=== PATIENT | male | born 1985 | race Caucasian/White ===

== ENCOUNTER 2017-04-06 18:11 | Inpatient (IN) | payer MEDICAID ==
[~2017-04-06] VITALS: Ht 175.3 cm; Wt 112.0 kg
[2017-04-06] MEDS ORDERED: BUPR150T3 PO (18:14)
[2017-04-06] MEDS ORDERED: QUET50TA PO (18:14)
[2017-04-06] MEDS ORDERED: CLON0.5T PO (18:14)
[2017-04-06 18:52] LABS: BASOPHILS % (AUTO) 0.2 % (0.0-2.0); EOSINOPHILS % (AUTO) 1.9 % (1.0-6.0); HEMATOCRIT 45.2 % (41-53); HEMOGLOBIN 14.7 g/dL (13.5-17.5); LYMPHOCYTES # (AUTO) 0.7 K/uL (1.0-4.8); LYMPHOCYTES % (AUTO) 17.5 % (22.0-44.0); MEAN CORPUSCULAR HEMOGLOBIN 28.8 pg (26.0-34.0); MEAN CORPUSCULAR HGB CONC 32.5 G/dL (31.0-37.0); MEAN CORPUSCULAR VOLUME 89 fL (80-100); MONOCYTES # (AUTO) 0.4 K/uL (0.1-1.0); MONOCYTES % (AUTO) 9.9 % (2.0-9.0); NEUTROPHILS # (AUTO) 2.7 K/uL (1.8-7.7); NEUTROPHILS % (AUTO) 70.5 % (40.0-70.0); PLATELET COUNT (AUTO) 216 K/uL (150-450); WHITE BLOOD COUNT (AUTO) 3.9 K/uL (4.5-11.0)
[2017-04-06 18:57] LABS: ANION GAP 8 mmol/L (8-16); CALCIUM, TOTAL 8.6 mg/dL (8.8-10.5); CARBON DIOXIDE 30 mmol/L (22-29); CHLORIDE 98 mmol/L (98-107); CREATININE 0.94 mg/dL (0.60-1.30); GLOMERULAR FILTR. RATE CALC > 60 mL/min (>60); SODIUM SERUM 136 mmol/L (136-145); UREA NITROGEN, BLOOD 9 mg/dL (7-18)
[2017-04-06 19:05] LABS: ALANINE AMINOTRANSFERASE 39 U/L (12-78); ALBUMIN 3.7 g/dL (3.4-5.0); ASPARTATE AMINOTRANSFERASE 42 U/L (15-37); BILIRUBIN,TOTAL 0.7 mg/dL (0.1-1.0); TOTAL PROTEIN, SERUM 7.9 g/dL (6.4-8.2)
[2017-04-06] MEDS ORDERED: POTASSIUM CHLORIDE 20 MEQ ER TABLET PO ONE (19:30)
[2017-04-06] MEDS ORDERED: HALOPERIDOL 5 MG TABLET PO PRN (20:00)
[2017-04-06 20:15] LABS: CHOL/HDL RATIO 3.4 (4.2-7.3)
[2017-04-06 20:50] LABS: APPEARANCE,URINE CLEAR (CLEAR); GLUCOSE, URINE (UA) NEGATIVE (NEGATIVE); KETONES,URINE TRACE mg/dL (NEGATIVE); LEUKOCYTE ESTERASE ,URINE NEGATIVE (NEGATIVE); OCCULT BLOOD,URINE NEGATIVE (NEGATIVE); PROTEIN,URINE TRACE (NEGATIVE)
[2017-04-06 20:52] LABS: ADD UA MICROSCOPIC NO
[2017-04-06 22:39] VITALS: BP 125/75
[2017-04-07 00:05] VITALS: BP 129/65
[2017-04-07] MEDS ORDERED: PNEUMOCOCCAL VACCINE POLYVALENT 0.5 ML VIAL [PPSV23] IM ONE (02:00)
[2017-04-07 08:21] LABS: ALANINE AMINOTRANSFERASE 38 U/L (12-78); ALBUMIN 3.2 g/dL (3.4-5.0); ANION GAP 8 mmol/L (8-16); ASPARTATE AMINOTRANSFERASE 33 U/L (15-37); BILIRUBIN,TOTAL 0.4 mg/dL (0.1-1.0); CALCIUM, TOTAL 8.1 mg/dL (8.8-10.5); CARBON DIOXIDE 28 mmol/L (22-29); CHLORIDE 101 mmol/L (98-107); CREATININE 0.79 mg/dL (0.60-1.30); GLOMERULAR FILTR. RATE CALC > 60 mL/min (>60); POTASSIUM 3.7 mmol/L (3.5-5.1); SODIUM SERUM 137 mmol/L (136-145); TOTAL PROTEIN, SERUM 6.5 g/dL (6.4-8.2); UREA NITROGEN, BLOOD 9 mg/dL (7-18)
[2017-04-07 08:41] VITALS: BP 124/60
[2017-04-07] MEDS: LORazepam 2 MG TABLET PO PRN (12:48)
[2017-04-07] MEDS: NICOTINE 21 MG/24 HOUR PATCH TD SCH (12:48)
[2017-04-07 16:16] VITALS: BP 137/76
[2017-04-07] MEDS: QUEtiapine FUMARATE 100 MG TABLET PO SCH (16:16)
[2017-04-07] MEDS: BuPROPion HCL 150 MG SR TABLET PO SCH (16:16)
[2017-04-08 00:14] VITALS: BP 127/71
[2017-04-08] MEDS: LORazepam 2 MG TABLET PO PRN ×2 (01:02→11:08)
[2017-04-08] MEDS: QUEtiapine FUMARATE 100 MG TABLET PO SCH ×2 (08:26→16:54)
[2017-04-08] MEDS: NICOTINE 21 MG/24 HOUR PATCH TD SCH (08:26)
[2017-04-08] MEDS: BuPROPion HCL 150 MG SR TABLET PO SCH ×2 (08:26→16:54)
[2017-04-08 08:34] VITALS: BP 136/76
[2017-04-08] MEDS ORDERED: DiphenhydrAMINE HCL 50 MG/ML VIAL ONE (15:55)
[2017-04-08] MEDS ORDERED: LORazepam 2 MG/ML VIAL ONE (15:55)
[2017-04-08] MEDS ORDERED: HALOPERIDOL LACTATE 5 MG/ML VIAL ONE (15:55)
[2017-04-08 16:00] VITALS: BP 126/76
[2017-04-08] MEDS ORDERED: DiphenhydrAMINE HCL 50 MG/ML VIAL IM ONE (16:00)
[2017-04-08] MEDS ORDERED: HALOPERIDOL LACTATE 5 MG/ML VIAL IM ONE (16:00)
[2017-04-08] MEDS ORDERED: LORazepam 2 MG/ML VIAL IM ONE (16:00)
[2017-04-08] MEDS: ZOLPIDEM TARTRATE 10 MG TABLET PO PRN ×2 (20:57)
[2017-04-09 06:52] VITALS: BP 144/74
[2017-04-09] MEDS: NICOTINE 21 MG/24 HOUR PATCH TD SCH (08:22)
[2017-04-09] MEDS: BuPROPion HCL 150 MG SR TABLET PO SCH ×2 (08:22→17:00)
[2017-04-09] MEDS: QUEtiapine FUMARATE 100 MG TABLET PO SCH ×2 (08:22→17:00)
[2017-04-09 08:41] VITALS: BP 130/66
[2017-04-09] MEDS: LORazepam 2 MG TABLET PO PRN ×2 (10:22→17:00)
[2017-04-09 16:32] VITALS: BP 135/78
[2017-04-09] MEDS: ZOLPIDEM TARTRATE 10 MG TABLET PO PRN (20:23)
[2017-04-10 02:52] VITALS: BP 130/95
[2017-04-10] MEDS: LORazepam 2 MG TABLET PO PRN ×3 (02:52→20:23)
[2017-04-10 08:23] VITALS: BP 133/87
[2017-04-10] MEDS: NICOTINE 21 MG/24 HOUR PATCH TD SCH (08:54)
[2017-04-10] MEDS: BuPROPion HCL 150 MG SR TABLET PO SCH ×2 (08:54→17:15)
[2017-04-10] MEDS: QUEtiapine FUMARATE 100 MG TABLET PO SCH ×2 (08:54→17:15)
[2017-04-10 16:28] VITALS: BP 140/100
[2017-04-10] MEDS: ZOLPIDEM TARTRATE 10 MG TABLET PO PRN (20:50)
[2017-04-11] MEDS: LORazepam 2 MG TABLET PO PRN ×2 (03:38→16:13)
[2017-04-11 04:10] VITALS: BP 136/85
[2017-04-11] MEDS: BuPROPion HCL 150 MG SR TABLET PO SCH ×2 (08:28→16:13)
[2017-04-11] MEDS: NICOTINE 21 MG/24 HOUR PATCH TD SCH (08:28)
[2017-04-11] MEDS: QUEtiapine FUMARATE 100 MG TABLET PO SCH ×2 (08:28→16:13)
[2017-04-11 08:42] VITALS: BP 137/84
[2017-04-11] MEDS ORDERED: LORazepam 2 MG/ML VIAL ONE (14:11)
[2017-04-11] MEDS ORDERED: HALOPERIDOL LACTATE 5 MG/ML VIAL ONE (14:12)
[2017-04-11] MEDS ORDERED: DiphenhydrAMINE HCL 50 MG/ML VIAL ONE (14:12)
[2017-04-11] MEDS ORDERED: HALOPERIDOL LACTATE 5 MG/ML VIAL IM ONE (14:15)
[2017-04-11] MEDS ORDERED: LORazepam 2 MG/ML VIAL IM ONE (14:15)
[2017-04-11] MEDS ORDERED: DiphenhydrAMINE HCL 50 MG/ML VIAL IM ONE (14:15)
[2017-04-11 16:05] VITALS: BP 118/69
[2017-04-11] MEDS: ZOLPIDEM TARTRATE 10 MG TABLET PO PRN (21:03)
[2017-04-12 00:32] VITALS: BP 138/81
[2017-04-12] MEDS: LORazepam 2 MG TABLET PO PRN ×3 (00:33→15:29)
[2017-04-12 08:05] VITALS: BP 133/76
[2017-04-12] MEDS: BuPROPion HCL 150 MG SR TABLET PO SCH ×2 (08:17→16:45)
[2017-04-12] MEDS: QUEtiapine FUMARATE 100 MG TABLET PO SCH ×2 (08:17→16:45)
[2017-04-12] MEDS: NICOTINE 21 MG/24 HOUR PATCH TD SCH (08:18)
[2017-04-12 16:10] VITALS: BP 130/70
[2017-04-12] MEDS: QUEtiapine FUMARATE 200 MG TABLET PO SCH (20:35)
[2017-04-12] MEDS: ZOLPIDEM TARTRATE 10 MG TABLET PO PRN (20:50)
[2017-04-13 02:06] VITALS: BP 127/89
[2017-04-13] MEDS: LORazepam 2 MG TABLET PO PRN ×4 (02:41→20:23)
[2017-04-13 08:06] VITALS: BP 136/73
[2017-04-13] MEDS: BuPROPion HCL 150 MG SR TABLET PO SCH ×2 (08:08→16:23)
[2017-04-13] MEDS: NICOTINE 21 MG/24 HOUR PATCH TD SCH (08:08)
[2017-04-13] MEDS: QUEtiapine FUMARATE 100 MG TABLET PO SCH ×2 (08:08→16:23)
[2017-04-13 16:00] VITALS: BP 131/86
[2017-04-13] MEDS: QUEtiapine FUMARATE 200 MG TABLET PO SCH (20:14)
[2017-04-13] MEDS: ZOLPIDEM TARTRATE 10 MG TABLET PO PRN (20:23)
[2017-04-13] MEDS ORDERED: IBUPROFEN 600 MG TABLET PO PRN (20:30)
[2017-04-13] MEDS ORDERED: ACETAMINOPHEN 325 MG TABLET PO PRN (20:30)
[2017-04-13 21:58] VITALS: BP 126/77
[2017-04-14 01:37] VITALS: BP 125/92
[2017-04-14] MEDS: LORazepam 2 MG TABLET PO PRN ×4 (02:45→12:12)
[2017-04-14 08:31] VITALS: BP 126/74
[2017-04-14] MEDS: BuPROPion HCL 150 MG SR TABLET PO SCH (08:35)
[2017-04-14] MEDS: QUEtiapine FUMARATE 100 MG TABLET PO SCH (08:35)
[2017-04-14] MEDS: NICOTINE 21 MG/24 HOUR PATCH TD SCH (08:36)
[2017-04-14] MEDS ORDERED: QUET200T PO (11:20)
== END 2017-04-14 13:45 | disposition home or self-care (01) | DRG 753 ==
LOC: EMS 18:16 → B2S 20:46 → B3A 04-11 14:45
PROVIDERS: ADMIT Psychiatry & Neurology Child & Adolescent Psychiatry; ATTEND Psychiatry & Neurology Child & Adolescent Psychiatry
DX: F31.4 Bipolar disorder, current episode depressed, severe, without psychotic features (principal); R45.851 Suicidal ideations; E87.6 Hypokalemia; K59.00 Constipation, unspecified; F19.90 Other psychoactive substance use, unspecified, uncomplicated; F10.929 Alcohol use, unspecified with intoxication, unspecified; Y90.1 Blood alcohol level of 20-39 mg/100 ml
CPT/HCPCS: 87081; 90471; 99285; G0480; J1200; J1630; J2060